=== PATIENT | male | born 1990 | race African-American/Black ===

== ENCOUNTER 2017-06-17 14:57 | Emergency (ER) | payer SELFPAY ==
--- NOTE | 2017-06-17 15:10 | NUR ---
CALLED TO BE TRIAGE, NO ANSWER FROM THE PATIENT IN THE WR, PATIENT LEFT PER ADMITTING PERSONNEL.
== END 2017-06-17 15:54 | disposition left against medical advice (07) ==
LOC: ER 15:00
DX: Z53.21 Procedure and treatment not carried out due to patient leaving prior to being seen by health care provider (principal)